=== PATIENT | male | born 1975 | race Two or more races ===

== ENCOUNTER 2023-10-09 13:59 | Outpatient (AMB) | payer OTHER, SELFPAY ==
--- NOTE | 2023-10-09 14:20 | MHC.PC.OV ---
Vital Signs 10/09/23 14:22 Height 5 ft 11 in Weight 234 lb BMI 32.6 BP 136/90 H Blood Pressure Location Lt brachial Position Sitting Intake Visit Reasons: re-establish care , requesting Intake Note: Patient here to re-establish care Print Washer Required: No Accompanied by: Spouse Allergies No Known Allergies Allergy (Verified 10/09/23 14:48) Medication List - Last Reconciled 10/09/23 by Rayna Flores MD No Known Home Meds Tobacco use date assessed: 10/09/23 Dental Screening Dental Screen Date: 10/09/23 Did you have a dental visit in the last 12 months?: No Did you have a dental problem in the last 6 months where you did not have access to dental care?: No Was dental information given to patient?: Patient has dentist HPI HPI Comments History of Present Illness Details This is a 47-year-old male that comes accompanied by complaining of occasional GERD that happens very rarely. He is to have a hiatal hernia. No chest pain or shortness of breath. No fever or cough. Has family history of hypertension. [facility] Surgical History History of circumcision as Family History Mother Hypertension Father No problems noted. Social History Housing: House Alcohol intake: never Patient Tobacco Use Status: Never used Tobacco e-Cigarette/Vaping Use: Never Used Second Hand Smoke Exposure: No service: No Current occupational status: unemployed Cognitive needs: No Hearing needs: No Vision needs: Yes Questionnaire PHQ-9 Over the last 2 weeks, how often have you been bothered by any of the following problems? 1. Little interest or pleasure in doing things: not at all 2. Feeling down, depressed, or hopeless: several days 3. Trouble falling or staying asleep, or sleeping too much: several days 4. Feeling tired or having little energy: several days 5. Poor appetite or overeating: more than half the days 6. Feeling bad about yourself - or that you are a failure or have let yourself or your family down: not at all 7. Trouble concentrating on things, such as reading the newspaper or watching television: not at all 8. Moving or speaking so slowly that other people could have noticed. Or the opposite - being so fidgety or restless that you have been moving around a lot more than usual: several days 9. Thoughts that you would be better off or of hurting yourself in some way: not at all Total score: 6 Depression Screening Interpretation: Positive Depression Screening Follow-up: Existing condition Depression Screening Done: Yes 95372 - PHQ-9 Billing: Yes Source: Developed by Drs. Matt Zaidi, Kitty Rodriguez, Vega Blum and colleagues, with an educational gamaliel from [employer]. Thrive Questionnaire Date Thrive assessed: 10/09/23 I am a: Patient What is your living situation today?: I have a steady place to live Within the past 12 months, did the food you bought not last and you didn't have the money to get more?: Never true Within the past 12 months, did you worry whether your food would run out before you got money to buy more?: Never true Do you have trouble paying for medicines?: No Do you have trouble getting transportation to medical appointments?: No Do you have trouble paying your heating and electricity bill?: No Do you have trouble taking care of your child, family member or friend?: No Do you have trouble with day-to-day activities such as bathing, preparing meals, shopping, managing finances, etc.?: No Are you currently unemployed and looking for a job?: No Are you interested in more education?: No Please select the resources that you would like help with: None Currently or been in a relationship where the following occur: no concerns reported THRIVE Score: 0 AUDIT C Alcohol Use Questionnaire (AUDIT-C) 1. How often do you have a drink containing alcohol?: Never Total Score: 0 Score Reviewed/Action Taken: No JUAN JOSE-7 AMB Questionnaire JUAN JOSE-7 Date JUAN JOSE - 7 assessed: 10/09/23 Feeling nervous, anxious, or on edge: 1 = Several days Not being able to stop or control worryin = Not at all Worrying too much about different things: 0 = Not at all Trouble relaxin = Not at all Being so restless that it is hard to sit still: 0 = Not at all Becoming easily annoyed or irritable: 1 = Several days Feeling afraid as if something awful might happen: 0 = Not at all Total JUAN JOSE-7 score (0-4 normal; 5-9 mild; 10-14 moderate; 15-21 severe): 2 Source: Developed by Drs. Matt Zaidi, Kitty Rodriguez, Vega Blum and colleagues, with an educational gamaliel from [employer]. JUAN JOSE-7 Assessment Billing JUAN JOSE-7 Assessment Tool: JUAN JOSE-7 Assessment 12728 Review of Systems Const All systems reviewed & are unremarkable except as noted in HPI and below Eyes Reports no additional complaints, Denies change in vision and Denies other visual disturbances Card Denies chest pain at rest, Denies chest pain with activity, Denies edema, Denies irregular heart rhythm, Denies claudication, Denies dyspnea, Denies dyspnea on exertion, Denies orthopnea, Denies paroxysmal nocturnal dyspnea and Denies slow heart rate Resp Denies cough, Denies dyspnea and Denies dyspnea on exertion GI Denies abdominal pain, Denies change in bowel habits, Denies excessive flatus, Denies nausea and Denies vomiting Denies urinary hesitancy, Denies urinary incontinence and Denies urinary urgency Physical exam (Primary Care) Vital Signs: Last Vital Signs BP 136/90 H 10/09/23 14:22 BMI result Body Mass Index 32.6 Tobacco/Smoking Status: Tobacco use Status Tobacco use date assessed 10/09/23 10/09/23 14:29 Patient Tobacco Use Status Never used Tobacco 10/09/23 14:29 e-Cigarette/Vaping Use Never Used 10/09/23 14:29 PHQ-9: PHQ-9 Score PHQ-9: Total score 6 10/09/23 15:23 Depression Screening Interpretation: Positive Depression Screening Follow-up: Existing condition Thrive Assessment: Date of Thrive Assessment Date Thrive assessed 10/09/23 10/09/23 14:29 Currently or been in a relationship where the following occur: no concerns reported Eyes General: appearance normal, both eyes and all related structures Eyelids: Yes eyelids normal Conjunctivae: conjunctivae normal Neck Neck: Yes normal visual inspection and Yes supple Resp Effort & Inspection: normal respiratory effort Auscultation: clear to auscultation bilaterally Cardio Jugular venous distension: no JVD Rate: regular rate Rhythm: regular rhythm Heart sounds: S1 normal heart sound present and S2 normal heart sound present Extrem General: Yes full ROM Psych Appearance: grossly normal Assessment and Plan Assessment & Plan (1) GERD (gastroesophageal reflux disease): Code(s): K21.9 - Gastro-esophageal reflux disease without esophagitis Plan: Upper GI serious orde Orders: Orders FL upper GI series Today K21.9 - Gastro-esophageal reflux disease without esophagitis Lipid Panel Today Z82.49 - Family history of ischemic heart disease and other diseases of the circulatory system Comprehensive [place]. Panel Fast Today K21.9 - Gastro-esophageal reflux disease without esophagitis Coding Level of Care Code New Pt Level 3 (22747) Diagnoses GERD (gastroesophageal reflux disease) K21.9 Additional Codes JUAN JOSE-7 Assessment Billing - JUAN JOSE-7 Assessment Tool: JUAN JOSE-7 Assessment 03554 ([id number]) Time Spent (min) 19
[2023-10-09 14:22] VITALS: BP 136/90; BMI 32.6
== END 2023-10-09 14:57 | disposition home or self-care (01) ==
PROVIDERS: PCP Internal Medicine; Visit Provider Internal Medicine
DX: K21.9 Gastro-esophageal reflux disease without esophagitis (principal)
CPT/HCPCS: 99203

== ENCOUNTER 2023-10-18 07:53 | Outpatient (REF) | payer OTHER, SELFPAY ==
[2023-10-18 09:29] LABS: Alanine Aminotransferase 33 U/L (0-40); Albumin Level 4.2 g/dL (3.5-5.0); Alkaline Phosphatase 58 U/L (39-117); Anion Gap 10 (12-20); Aspartate Amino Transferase 26 U/L (5-37); Bilirubin Total 0.9 mg/dL (0.0-1.0); Blood Urea Nitrogen 14 mg/dL (9-16); Calcium 9.1 mg/dL (8.4-10.2); Carbon Dioxide 26 mmol/L (22-29); Chloride 110 mmol/L (96-108); Cholesterol 203 mg/dL (<200); Estimated Glomerular Filt Rate > 60; Glucose Fasting 103 mg/dL (60-99); HDL Cholesterol 36 mg/dL (>40); LDL Cholesterol Calculated 129 mg/dL (<100); Potassium 4.1 mmol/L (3.3-5.1); Sodium 142 mmol/L (135-145); Total Protein 7.2 g/dL (6.5-8.0); Triglycerides 194 mg/dL (<150)
== END 2023-10-18 07:54 | disposition home or self-care (01) ==
LOC: HO.LAB 07:53
PROVIDERS: PCP Internal Medicine; Visit Provider Internal Medicine
DX: K21.9 Gastro-esophageal reflux disease without esophagitis (principal); Z82.49 Family history of ischemic heart disease and other diseases of the circulatory system
CPT/HCPCS: 36415; 80053; 80061

== ENCOUNTER 2023-12-11 08:00 | Outpatient (REF) | payer OTHER, SELFPAY ==
--- NOTE | ~2023-12-11 | FL_ITS ---
EXAMINATION: XR FLUOROSCOPY UPPER GI WITH AIR CLINICAL INFORMATION: Dysphagia. Reflux. COMPARISON: None available. TECHNIQUE: Fluoroscopic air contrast upper GI examination was performed utilizing standard techniques with thin and thick barium and effervescent granules. Numerous spot images were obtained. FINDINGS: Lateral cine images of the oropharynx and hypopharynx demonstrate normal swallow mechanism with normal epiglottic inversion and soft palate elevation. There is trace laryngeal penetration with thick barium. No tracheal penetration, glottic or subglottic aspiration identified. No nasopharyngeal reflux present. Hypopharyngeal structures appear normal without evidence of mass or diverticulum. There was no significant cricopharyngeal achalasia. Dual and single contrast images of the esophagus demonstrate normal caliber, contour, and mucosal pattern. No evidence of stricture, mass, or ulcerations identified. Esophageal peristalsis is mildly disorganized Very small type I hiatal hernia is present. Spontaneous Gastroesophageal reflux is seen up to the thoracic inlet. Dual contrast and single contrast images of the stomach demonstrated a normal contour. The gastric rugal rugal folds have a mildly thickened appearance. No masses or ulcerations are seen. Contrast freely passed into the gastric antrum and duodenal bulb without delay. Single and air-contrast images of the duodenal bulb demonstrate no abnormality. The duodenal sweep has a normal appearance, course, and mucosal fold appearance. No malrotation. The imaged proximal jejunum has a normal fold pattern and caliber. FLUOROSCOPY TIME: 3 minutes 12 seconds Number of Spot Images: 10 Number of Cine: 12 DOSE AREA PRODUCT: 2743 uGy-m2 (microgray-meter squared) FL/FL upper GI w air IMPRESSION: 1. Trace laryngeal penetration with thick barium. 2. Very small type I hiatal hernia. 3. Significant gastroesophageal reflux. 4. Thickened appearance of the gastric rugal folds that likely represents mild gastritis. This procedure was performed by Julius Jackson PA-C, and supervised by Dr. Dillon
== END 2023-12-11 08:01 | disposition home or self-care (01) ==
LOC: HO.XRAY 08:00
PROVIDERS: PCP Internal Medicine; Visit Provider Internal Medicine
DX: K21.9 Gastro-esophageal reflux disease without esophagitis (principal)
CPT/HCPCS: 74246

== ENCOUNTER → 2023-12-11 08:01 | Outpatient (BNV) | payer OTHER, SELFPAY | PROVIDERS: PCP Internal Medicine; Visit Provider Physician Assistant Surgical | DX: R13.10 Dysphagia, unspecified (principal); K21.9 Gastro-esophageal reflux disease without esophagitis | CPT/HCPCS: 74246 ==

== ENCOUNTER 2024-02-06 08:41 | Outpatient (REF) | payer OTHER, SELFPAY | END 2024-02-06 08:42 | disposition home or self-care (01) | LOC: HO.XRAY 08:41 | PROVIDERS: PCP Internal Medicine; Visit Provider Internal Medicine | DX: Z13.89 Encounter for screening for other disorder (principal) ==

== ENCOUNTER 2024-02-24 13:39 | Outpatient (AMB) | payer OTHER, SELFPAY ==
--- NOTE | 2024-02-24 13:54 | A.OFFPC_ITS ---
Vital Signs 02/24/24 13:59 Height 5 ft 11 in Weight 238 lb BMI 33.2 BP 136/92 H Blood Pressure Location Lt brachial Position Sitting Pulse 78 Pulse Source Pulse Oximeter Pulse Oximetry (%) 97 Oxygen Delivery Method Room Air Intake Visit Reasons: pe Intake Note: Patient is here today for a physical. Pt had an episode of low glucose this past Saturday of 58 they symptoms last from 11am-4pm not feeling well. Protective Signal Operations Supervisor Required: No Accompanied by: Self / Same As Patient Allergies No Known Allergies Allergy (Verified 02/24/24 14:02) Medication List - Last Reconciled 02/24/24 by Rayna Flores MD No Known Home Meds Tobacco use date assessed: 10/09/23 Dental Screening Dental Screen Date: 10/09/23 HPI HPI Comments History of Present Illness Details This is a 48-year-old male that comes for his physical exam. Blood pressure borderline normal to elevated and will be recheck in 3 weeks by nurse navigator. Has never had a colonoscopy. Complains of an episode of feeling generalized weakness few weeks ago and measure his blood sugar and it was 58. Had orange juice and symptoms last for about a day. He also complains of right knee pain. [facility] Surgical History History of circumcision as Family History (Updated 02/24/24 @ 14:06 by Rayna Flores MD) Mother Hypertension Father No problems noted. Daughter Brain tumor Social History (Updated 02/24/24 @ 14:07 by Rayna Flores MD) Housing: House Alcohol intake: never Patient Tobacco Use Status: Former Tobacco user Tobacco use type: Cigarette e-Cigarette/Vaping Use: Never Used Second Hand Smoke Exposure: No service: No Current occupational status: unemployed Cognitive needs: No Hearing needs: No Vision needs: Yes Questionnaire Thrive Questionnaire Date Thrive assessed: 10/09/23 JUAN JOSE-7 AMB Questionnaire JUAN JOSE-7 Date JUAN JOSE - 7 assessed: 10/09/23 Source: Developed by Drs. Matt Zaidi, Kitty Rodriguez, Vega Blum and colleagues, with an educational gamaliel from [employer]. Review of Systems Const All systems reviewed & are unremarkable except as noted in HPI and below Card Denies chest pain at rest, Denies chest pain with activity, Denies edema, Denies irregular heart rhythm, Denies claudication, Denies dyspnea, Denies dyspnea on exertion, Denies orthopnea, Denies paroxysmal nocturnal dyspnea and Denies slow heart rate Resp Denies cough, Denies dyspnea and Denies dyspnea on exertion GI Denies abdominal pain, Denies change in bowel habits, Denies excessive flatus, Denies nausea and Denies vomiting Musc Reports arthralgias Physical exam (Primary Care) Vital Signs: Last Vital Signs Pulse 78 02/24/24 13:59 BP 136/92 H 02/24/24 13:59 Pulse Ox 97 02/24/24 13:59 Oxygen Delivery Method Room Air 02/24/24 13:59 BMI result Body Mass Index 33.2 Tobacco/Smoking Status: Tobacco use Status Tobacco use date assessed 10/09/23 02/24/24 13:59 Patient Tobacco Use Status Never used Tobacco 02/24/24 13:59 e-Cigarette/Vaping Use Never Used 02/24/24 13:59 Thrive Assessment: Date of Thrive Assessment Date Thrive assessed 10/09/23 02/24/24 13:59 HENCA Head: Yes normal to inspection, Yes normocephalic and Yes atraumatic Ears: external ears normal Eyes General: appearance normal, both eyes and all related structures Eyelids: Yes eyelids normal Conjunctivae: conjunctivae normal Neck Neck: Yes normal visual inspection and Yes supple Resp Effort & Inspection: normal respiratory effort Auscultation: clear to auscultation bilaterally Cardio Jugular venous distension: no JVD Rate: regular rate Rhythm: regular rhythm Heart sounds: S1 normal heart sound present and S2 normal heart sound present GI Inspection: Yes normal to inspection Palpation (GI): Soft to palpation and nontender Auscultation: normal bowel sounds Skin General skin exam: no rashes or lesions noted Neuro General: no focal motor deficits Extrem General: Yes full ROM Psych Appearance: grossly normal Assessment and Plan Assessment & Plan (1) Physical exam: Code(s): Z00.00 - Encounter for general adult medical examination without abnormal findings Plan: Repeat in a year. (2) Right knee pain: Code(s): M25.561 - Pain in right knee Qualifiers: Chronicity: acute Qualified Code(s): M25.561 - Pain in right knee Plan: X-ray ordered. (3) Hypoglycemia: Code(s): E16.2 - Hypoglycemia, unspecified Plan: Labs ordered. Orders: Orders Lipid Panel Today Z00.00 - Encounter for general adult medical examination without abnormal findings XR knee RT 2V Today M25.561 - Pain in right knee Comprehensive [place]. Panel Fast Today Z00.00 - Encounter for general adult medical examination without abnormal findings Glucose 2 Hour PP Today E16.2 - Hypoglycemia, unspecified Referrals Open Access Screening Colonoscopy Referral Z12.11 - Encounter for screening for malignant neoplasm of colon Coding Level of Care Code Est Pt Level 3 (50780) Est Pt Prev Care 40-64y(70874) Diagnoses Physical exam Z00.00 Acute pain of right knee M25.561 Chronicity: acute Hypoglycemia E16.2 Time Spent (min) 32
[2024-02-24 13:59] VITALS: BP 136/92; PULSE 78; O2SAT 97; BMI 33.2
== END 2024-02-24 14:24 | disposition home or self-care (01) ==
PROVIDERS: PCP Internal Medicine; Visit Provider Internal Medicine
DX: Z00.00 Encounter for general adult medical examination without abnormal findings (principal); M25.561 Pain in right knee; E16.2 Hypoglycemia, unspecified
CPT/HCPCS: 99213; 99396

== ENCOUNTER 2024-03-26 08:58 | Outpatient (REF) | payer OTHER, SELFPAY ==
--- NOTE | ~2024-03-26 | XR_ITS ---
EXAMINATION: XR KNEE, RIGHT CLINICAL INFORMATION: Pain COMPARISON: None TECHNIQUE: AP and lateral views of the right knee. FINDINGS: Bony mineralization is normal. There is mild to moderate asymmetric narrowing of the medial joint space compartment, and the lateral joint space compartment is well-maintained. There is moderately severe narrowing of the patellofemoral compartment. There is tricompartment peripheral osteophyte formation. There is a mild varus configuration. No fracture, dislocation or joint effusion is seen. There is no foreign body. XR/XR knee RT 2V IMPRESSION: 1. There is tricompartmental osteoarthritic change of the right knee, most pronounced of the patellofemoral joint space compartment, where degenerative change is moderately severe. 2. No fracture, dislocation or joint effusion is seen. 3. There is a mild varus configuration. Electronically signed by: Jack Aguilar MD 04/22/2024 03:22 PM EDT
[2024-03-26 10:29] LABS: Alanine Aminotransferase 36 U/L (0-40); Albumin Level 4.2 g/dL (3.5-5.0); Alkaline Phosphatase 54 U/L (39-117); Anion Gap 10 (12-20); Aspartate Amino Transferase 30 U/L (5-37); Bilirubin Total 1.2 mg/dL (0.0-1.0); Blood Urea Nitrogen 17 mg/dL (9-16); Calcium 9.1 mg/dL (8.4-10.2); Carbon Dioxide 25 mmol/L (22-29); Chloride 110 mmol/L (96-108); Cholesterol 171 mg/dL (<200); Estimated Glomerular Filt Rate > 60; Glucose Fasting 103 mg/dL (60-99); HDL Cholesterol 33 mg/dL (>40); LDL Cholesterol Calculated 108 mg/dL (<100); Sodium 141 mmol/L (135-145); Total Protein 7.3 g/dL (6.5-8.0); Triglycerides 153 mg/dL (<150)
[2024-03-26 13:12] LABS: Glucose 2 Hour PP 52 mg/dL (60-115)
== END 2024-03-26 08:59 | disposition home or self-care (01) ==
LOC: HO.XRAY 08:58
PROVIDERS: PCP Internal Medicine; Visit Provider Internal Medicine
DX: Z00.00 Encounter for general adult medical examination without abnormal findings (principal); M25.561 Pain in right knee; E16.2 Hypoglycemia, unspecified; M17.11 Unilateral primary osteoarthritis, right knee
CPT/HCPCS: 36415; 73560; 80053; 80061; 82947

== ENCOUNTER 2024-05-20 07:42 | Outpatient (AMB) | payer OTHER, SELFPAY ==
--- NOTE | 2024-05-20 07:52 | MHC.OFFVIS ---
Intake Visit Reasons: Right knee pain and giving way Intake Note: Shakir is a 48 year old male who presents with complaints of progressively worsening right knee pain and giving way. The patient states that his symptoms have gotten worse over the last 3 years in spite of continued non operative treatments. He has failed the last 6 weeks of conservative treatment which has consisted of a home exercise program, topical creams, Tylenol and anti-inflammatory medicines. The patient states that he injured his knee 3 years ago while playing with his child. He twisted his knee and had acute onset of pain. Most of the pain is along the medial aspect of his knee. He states that his left knee will give out several times per day. Assistant City Attorney Required: Yes Assistant City Attorney Language: Senior Information Security Engineer Name: [place]([id number]) Allergies No Known Allergies Allergy (Verified 05/20/24 07:57) Medication List - Last Reconciled 05/20/24 by Yuval Biswas MD No Known Home Meds [facility] Surgical History History of circumcision as Family History (Updated 02/24/24 @ 14:06 by Rayna Flores MD) Mother Hypertension Father No problems noted. Daughter Brain tumor Social History (Updated 02/24/24 @ 14:07 by Rayna Flores MD) Housing: House Alcohol intake: never Patient Tobacco Use Status: Former Tobacco user Tobacco use type: Cigarette e-Cigarette/Vaping Use: Never Used Second Hand Smoke Exposure: No service: No Current occupational status: unemployed Cognitive needs: No Hearing needs: No Vision needs: Yes Physical Exam Const Other: Well-nourished well-developed very friendly male awake alert and oriented x3 in no acute distress Extrem Other: Bilateral lower extremity examination shows good capillary refill, no skin lesions noted, normal sensation light touch Right knee examination shows a minimal effusion, minimal crepitus with range of motion, tenderness along his medial joint line, positive Loli's test, no instability Results Reviewed Results Reviewed: Standing full weight-bearing x-rays of the patient's right knee show mild diffuse joint space narrowing, no acute bony abnormalities Assessment & Plan Assessment & Plan (1) Tear of medial meniscus of right knee: Code(s): S83.241A - Other tear of medial meniscus, current injury, right knee, initial encounter Category: Medical Plan Mr. Armstrong presents with progressively worsening right knee pain and mechanical symptoms most likely due to a tear of his medial meniscus. I will send the patient for MRI of his right knee for further evaluation. I will see him back once the MRI is completed to discuss the findings and treatment options. Feel free to call me at any time should questions regarding his orthopedic management arise. Thank you very much for asking me to see this very friendly gentleman. I spent 21 minutes in reviewing the patient's records and imaging studies, seeing the patient and documenting in the medical record. Orders: Orders MR knee RT wo con Today S83.241A - Other tear of medial meniscus, current injury, right knee, initial encounter Coding Level of Care Code New Pt Level 3 (87462) Complex EM visit Add On G2211 Diagnoses Tear of medial meniscus of right knee S83.241A
== END 2024-05-20 08:15 | disposition home or self-care (01) ==
PROVIDERS: PCP Internal Medicine; Visit Provider Orthopaedic Surgery
DX: S83.241A Other tear of medial meniscus, current injury, right knee, initial encounter (principal)
CPT/HCPCS: 99203; G2211

== ENCOUNTER → 2024-05-20 07:42 | Outpatient (BNVA) | payer OTHER, SELFPAY | PROVIDERS: PCP Internal Medicine; Visit Provider Orthopaedic Surgery | DX: S83.241A Other tear of medial meniscus, current injury, right knee, initial encounter (principal); X58.XXXA Exposure to other specified factors, initial encounter; Y93.9 Activity, unspecified; Y92.9 Unspecified place or not applicable; Y99.9 Unspecified external cause status | CPT/HCPCS: 99202 ==

== ENCOUNTER 2024-06-18 07:16 | Outpatient (REF) | payer OTHER, SELFPAY ==
--- NOTE | ~2024-06-18 | MR_ITS ---
EXAMINATION: MR KNEE WITHOUT CONTRAST, RIGHT CLINICAL INFORMATION: Right knee pain. COMPARISON: None available. TECHNIQUE: MRI of the knee without contrast was performed using routine sequences on a high-field scanner. FINDINGS: MENISCI: Medial Meniscus: Irregular inner margin tearing of the posterior horn. Degenerative signal at the meniscal body with probable undersurface fraying. The meniscal body is extruded with intrasubstance degenerative signal. There is a vertical longitudinal tear at the root of the anterior horn with a 1.8 cm parameniscal cyst along the peripheral fibers. Lateral Meniscus: Intact LIGAMENTS: Cruciate: Intact Collateral: Intact EXTENSOR MECHANISM: Intact ARTICULAR CARTILAGE/BONE: Patellofemoral Compartment: Mild cartilage thinning and surface irregularity with shallow oblique fissuring of the medial patellar facet and median ridge. Cartilage thinning and surface irregularity throughout the central trochlea. Small marginal osteophytes. Medial Compartment: Cartilage thinning throughout the weightbearing aspect with prominent marginal osteophytes. There is longitudinal partial thickness cartilage loss of the posterior non-weightbearing femoral condyle. Degenerative cyst formation of the tibia posteriorly, subjacent to the meniscal root. Lateral Compartment: Prominent marginal osteophytes without a focal cartilage defect. JOINT FLUID AND BURSAE: Moderate joint effusion with mild synovitis. There is a small chondral body posterolaterally and a complex cyst/ganglion posteriorly, superficial to the distal PCL. MR/MR knee RT wo con IMPRESSION: 1. Irregular inner margin tearing of the posterior horn of the medial meniscus with extrusion of the meniscal body. There is a vertical longitudinal tear at the root of the anterior horn with a 1.8 cm parameniscal cyst. 2. Moderate medial and mild patellofemoral/lateral compartment osteoarthritis. Moderate joint effusion with mild synovitis. Electronically signed by: Allen Urbano MD 07/04/2024 12:44 PM [facility]
== END 2024-06-18 07:17 | disposition home or self-care (01) ==
LOC: HO.MRI 07:16
PROVIDERS: PCP Internal Medicine; Visit Provider Orthopaedic Surgery
DX: S83.241A Other tear of medial meniscus, current injury, right knee, initial encounter (principal)
CPT/HCPCS: 73721

== ENCOUNTER 2024-08-04 08:53 | Outpatient (AMB) | payer OTHER, SELFPAY ==
--- NOTE | 2024-08-04 08:53 | MHC.OFFVIS ---
Intake Visit Reasons: Right knee pain Intake Note: Shakir is a 48 year old male who presents with complaints of progressively worsening right knee pain and giving way. The patient states that his symptoms have gotten worse over the last 3 years in spite of continued non operative treatments. He has failed the last 6 weeks of conservative treatment which has consisted of a home exercise program, topical creams, Tylenol and anti-inflammatory medicines. The patient states that he injured his knee 3 years ago while playing with his child. He twisted his knee and had acute onset of pain. Most of the pain is along the medial aspect of his knee. He states that his left knee will give out several times per day. Communications Engineering Technician Required: Yes Communications Engineering Technician Language: Firefighting Equipment Specialist Services: Communications Engineering Technician Present Communications Engineering Technician Name: AmyLEONIDAS/CINDY Allergies No Known Allergies Allergy (Verified 08/04/24 08:55) Medication List - Last Reconciled 08/04/24 by Yuval Biswas MD No Known Home Meds [facility] Surgical History History of circumcision as Family History Mother Hypertension Father No problems noted. Daughter Brain tumor Social History Housing: House Alcohol intake: never Patient Tobacco Use Status: Former Tobacco user Tobacco use type: Cigarette e-Cigarette/Vaping Use: Never Used Second Hand Smoke Exposure: No service: No Current occupational status: unemployed Cognitive needs: No Hearing needs: No Vision needs: Yes Physical Exam Const Other: Well-nourished well-developed very friendly male awake alert and oriented x3 in no acute distress Extrem Other: Bilateral lower extremity examination shows good capillary refill, no skin lesions noted, normal sensation light touch Right knee examination shows a minimal effusion, minimal crepitus with range of motion, tenderness along his medial joint line, positive Loli's test, no instability Results Reviewed Results Reviewed: Standing full weight-bearing x-rays of the patient's right knee show mild diffuse joint space narrowing, no acute bony abnormalities MRI of the patient's right knee shows mild diffuse degenerative changes as well as a tear of the medial meniscus, no acute bony abnormalities Assessment & Plan Assessment & Plan (1) Right knee pain: Code(s): M25.561 - Pain in right knee Category: Medical Qualifiers: Chronicity: acute Qualified Code(s): M25.561 - Pain in right knee (2) Tear of medial meniscus of right knee: Code(s): S83.241A - Other tear of medial meniscus, current injury, right knee, initial encounter Category: Medical Plan Mr. Armstrong presents with right knee pain and mechanical symptoms due to a medial meniscus tear. I had a lengthy discussion with the patient regarding the treatment options. The patient is considering undergoing right knee arthroscopic surgery early next year. He will contact my office to pick a surgery date if he chooses to do so. Surgery will most likely involve right knee arthroscopic partial medial meniscectomy. He does understand that he may not get 100% relief of his symptoms depending on the severity of his degenerative changes. He will continue with his activity modifications in the meantime. Feel free to call me at any time should questions regarding his orthopedic management arise. I spent 21 minutes in reviewing the patient's records and imaging studies, seeing the patient and documenting in the medical record. Coding Level of Care Code Est Pt Level 3 (56154) Complex EM visit Add On G2211 Diagnoses Acute pain of right knee M25.561 Chronicity: acute Tear of medial meniscus of right knee S83.241A
== END 2024-08-04 09:07 | disposition home or self-care (01) ==
LOC: HO.HOS 08:53
PROVIDERS: PCP Internal Medicine; Visit Provider Orthopaedic Surgery
DX: M25.561 Pain in right knee (principal); S83.241A Other tear of medial meniscus, current injury, right knee, initial encounter
CPT/HCPCS: 99213; G2211

== ENCOUNTER → 2024-08-04 08:53 | Outpatient (BNVA) | payer OTHER, SELFPAY | PROVIDERS: PCP Internal Medicine; Visit Provider Orthopaedic Surgery | DX: M25.561 Pain in right knee (principal); S83.241A Other tear of medial meniscus, current injury, right knee, initial encounter | CPT/HCPCS: 99212 ==

== ENCOUNTER 2024-08-26 10:52 | Outpatient (AMB) | payer OTHER, SELFPAY ==
--- NOTE | 2024-08-26 11:08 | MHC.PC.OV ---
Vital Signs 08/26/24 11:09 Height 5 ft 11 in Weight 243 lb BMI 33.9 BP 130/82 Blood Pressure Location Lt brachial Position Sitting Intake Visit Reasons: bp Intake Note: Patient here for a follow up BP Leathersmith Required: Yes Leathersmith Language: Fluorescent Lamp Replacer Name: Rayna Flores MD Information Interpreted: non-clinical & clinical Accompanied by: Self / Same As Patient Allergies No Known Allergies Allergy (Verified 08/26/24 11:12) Tobacco use date assessed: 08/26/24 Dental Screening Dental Screen Date: 08/26/24 Did you have a dental visit in the last 12 months?: No Did you have a dental problem in the last 6 months where you did not have access to dental care?: No Was dental information given to patient?: Patient has dentist HPI HPI Comments History of Present Illness Details The patient is a 48-year-old male presenting with concerns about episodes of hypoglycemia. These episodes include symptoms such as feeling nearly unconscious. There is a noted history of low blood sugar, which appears to be influenced by dietary habits, especially the consumption of carbohydrates and sugars. The patient also has a history of hyperlipidemia, which had previously shown improvement through dietary modifications. The patient reports no recent fluctuations in pressure levels, which remain excellent. The patient is aware of the need for weight management, with a recorded Body Mass Index (BMI) of 33, indicating the need to decrease weight. There have been no reported recent episodes that were incapacitating, and the patient acknowledges the link between high carbohydrate intake and hypoglycemic episodes. [facility] Surgical History History of circumcision as Family History Mother Hypertension Father No problems noted. Daughter Brain tumor Social History Housing: House Alcohol intake: never Patient Tobacco Use Status: Former Tobacco user Tobacco use type: Cigarette e-Cigarette/Vaping Use: Never Used Second Hand Smoke Exposure: No service: No Current occupational status: unemployed Cognitive needs: No Hearing needs: No Vision needs: Yes Questionnaire PHQ-9 Over the last 2 weeks, how often have you been bothered by any of the following problems? 1. Little interest or pleasure in doing things: not at all 2. Feeling down, depressed, or hopeless: not at all 3. Trouble falling or staying asleep, or sleeping too much: not at all 4. Feeling tired or having little energy: not at all 5. Poor appetite or overeating: not at all 6. Feeling bad about yourself - or that you are a failure or have let yourself or your family down: not at all 7. Trouble concentrating on things, such as reading the newspaper or watching television: not at all 8. Moving or speaking so slowly that other people could have noticed. Or the opposite - being so fidgety or restless that you have been moving around a lot more than usual: not at all 9. Thoughts that you would be better off or of hurting yourself in some way: not at all Total score: 0 Depression Screening Interpretation: Negative Depression Screening Done: Yes 06819 - PHQ-9 Billing: Yes Source: Developed by Drs. Matt Zaidi, Kitty Rodriguez, Vega Blum and colleagues, with an educational gamaliel from [employer]. Thrive Questionnaire Date Thrive assessed: 08/26/24 I am a: Patient What is your living situation today?: I have a steady place to live Within the past 12 months, did the food you bought not last and you didn't have the money to get more?: Never true Within the past 12 months, did you worry whether your food would run out before you got money to buy more?: Never true Do you have trouble paying for medicines?: No Do you have trouble getting transportation to medical appointments?: No Do you have trouble paying your heating and electricity bill?: No Do you have trouble taking care of your child, family member or friend?: No Do you have trouble with day-to-day activities such as bathing, preparing meals, shopping, managing finances, etc.?: No Are you currently unemployed and looking for a job?: No Are you interested in more education?: No Please select the resources that you would like help with: None Currently or been in a relationship where the following occur: No concerns reported THRIVE Score: 0 AUDIT C Alcohol Use Questionnaire (AUDIT-C) 1. How often do you have a drink containing alcohol?: Never Total Score: 0 Score Reviewed/Action Taken: No JUAN JOSE-7 AMB Questionnaire JUAN JOSE-7 Date JUAN JOSE - 7 assessed: 08/26/24 Feeling nervous, anxious, or on edge: 0 = Not at all Not being able to stop or control worryin = Not at all Worrying too much about different things: 0 = Not at all Trouble relaxin = Not at all Being so restless that it is hard to sit still: 0 = Not at all Becoming easily annoyed or irritable: 0 = Not at all Feeling afraid as if something awful might happen: 0 = Not at all Total JUAN JOSE-7 score (0-4 normal; 5-9 mild; 10-14 moderate; 15-21 severe): 0 Source: Developed by Drs. Matt Zaidi, Kitty Rodriguez, Vega Blum and colleagues, with an educational gamaliel from [employer]. JUAN JOSE-7 Assessment Billing JUAN JOSE-7 Assessment Tool: JUAN JOSE-7 Assessment 71447 Review of Systems Const All systems reviewed & are unremarkable except as noted in HPI and below Card Denies chest pain at rest, Denies chest pain with activity, Denies edema, Denies irregular heart rhythm, Denies claudication, Denies dyspnea, Denies dyspnea on exertion, Denies orthopnea, Denies paroxysmal nocturnal dyspnea and Denies slow heart rate Resp Denies cough, Denies dyspnea and Denies dyspnea on exertion Physical exam (Primary Care) Vital Signs: Last Vital Signs BP 130/82 08/26/24 11:09 BMI result Body Mass Index 33.9 BMI Assessment/Plan discussion: High BMI High, discussed plan: lifestyle, weight reduction, dietary and physical activity Tobacco/Smoking Status: Tobacco use Status Tobacco use date assessed 08/26/24 08/26/24 11:14 Patient Tobacco Use Status Former Tobacco user 08/26/24 11:14 Tobacco use type Cigarette 08/26/24 11:14 e-Cigarette/Vaping Use Never Used 08/26/24 11:14 PHQ-9: PHQ-9 Score PHQ-9: Total score 0 08/26/24 11:29 Depression Screening Interpretation: Negative Thrive Assessment: Date of Thrive Assessment Date Thrive assessed 08/26/24 08/26/24 11:14 Currently or been in a relationship where the following occur: No concerns reported Resp Effort & Inspection: normal respiratory effort Auscultation: clear to auscultation bilaterally Cardio Jugular venous distension: no JVD Rate: regular rate Rhythm: regular rhythm Heart sounds: S1 normal heart sound present and S2 normal heart sound present Extrem General: Yes full ROM Office Procedures Flu Questionnaire Does the patient have a severe egg allergy?: No Immunizations Fluarix Triv [id number] (PF) 45 mcg (15 mcg x 3)/0.5 mL IM syringe Performing Provider: Rayna Flores MD [facility] [place] [facility] Documented (not given) by: LEONIDAS Sánchez on 08/26/24 11:14 Reason Not Given: Patient Refused Coding Level of Care Code Est Pt Level 4 (68746) Complex EM visit Add On G2211 Diagnoses Hypoglycemia E16.2 Obesity (BMI 30.0-34.9) E66.811 Additional Codes JUAN JOSE-7 Assessment Billing - JUAN JOSE-7 Assessment Tool: JUAN JOSE-7 Assessment 76452 ([id number]) PHQ-9 - 28468 - PHQ-9 Billing: Yes ([id number]) Time Spent (min) 23 Assessment & Plan Assessment & Plan (1) Hypoglycemia: Code(s): E16.2 - Hypoglycemia, unspecified Category: Medical (2) Obesity (BMI 30.0-34.9): Code(s): E66.811 - Obesity, class 1 Category: Medical Plan - Arrange referral to security public safety officer for evaluation of hypoglycemia. - Schedule laboratory tests for fasting glucose, lipids, liver, and kidney function. - Advised continuing dietary measures to maintain cholesterol within a normal range. - Patient advised to engage in lifestyle modifications for weight reduction. Patient was informed and verbally consented to the use of an ambient scribe for clinic note documentation during this visit. During the visit, I discussed with the patient the likely cause of his hypoglycemic episodes, attributing them largely to the dietary intake of high carbohydrates and sugars. We reviewed the management options, including dietary adjustments to increase protein intake and decrease carbohydrates and sugars. I explained the importance of monitoring blood sugar levels and avoiding large carbohydrate meals to prevent triggering hypoglycemic events. The patient consented to seeing an security public safety officer for further evaluation and agreed to undergo recommended laboratory tests to monitor fasting glucose and lipid levels. The importance of weight loss was stressed, and strategies for implementing these changes were reviewed. Follow-up plans were discussed, with a suggested revisit in February to evaluate the effectiveness of these interventions and to assess for additional medical or dietary adjustments. Orders: Orders Comprehensive [place]. Panel Fast Today E16.2 - Hypoglycemia, unspecified Lipid Panel Today E78.5 - Hyperlipidemia, unspecified Influenza 3230-4011 Immunization Today Z23 - Encounter for immunization Referrals Endocrinology Referral E16.2 - Hypoglycemia, unspecified Patient Instructions: - Follow a diet that prioritizes proteins and minimizes carbohydrates and sugars. - Monitor blood sugar levels regularly to track any changes or persistent low episodes. - Anticipate upcoming laboratory tests and security public safety officer appointment. - Aim to reduce weight as part of managing overall health, focusing on dietary changes alongside any suggested physical activity. - Return for follow-up evaluation in February as planned.
[2024-08-26 11:09] VITALS: BP 130/82; BMI 33.9
== END 2024-08-26 11:34 | disposition home or self-care (01) ==
PROVIDERS: PCP Internal Medicine; Visit Provider Internal Medicine
DX: E16.2 Hypoglycemia, unspecified (principal); E66.811 Obesity, class 1; Z68.33 Body mass index [BMI] 33.0-33.9, adult

== ENCOUNTER 2024-08-26 10:52 | Outpatient (REF) | payer OTHER, SELFPAY ==
[2024-08-26 12:44] LABS: Albumin Level 4.4 g/dL (3.5-5.0); Alkaline Phosphatase 57 U/L (39-117); Anion Gap 8 (12-20); Aspartate Amino Transferase 30 U/L (5-37); Bilirubin Total 1.1 mg/dL (0.0-1.0); Blood Urea Nitrogen 17 mg/dL (9-16); Calcium 9.6 mg/dL (8.4-10.2); Carbon Dioxide 28 mmol/L (22-29); Chloride 109 mmol/L (96-108); Cholesterol 208 mg/dL (<200); Estimated Glomerular Filt Rate > 60; Glucose Fasting 87 mg/dL (60-99); HDL Cholesterol 34 mg/dL (>40); LDL Cholesterol Calculated 125 mg/dL (<100); Potassium 4.2 mmol/L (3.3-5.1); Sodium 141 mmol/L (135-145); Total Protein 7.9 g/dL (6.5-8.0); Triglycerides 246 mg/dL (<150)
[2024-08-26 12:56] LABS: Alanine Aminotransferase 44 U/L (0-40)
== END 2024-08-26 10:53 | disposition home or self-care (01) ==
LOC: HO.LAB 10:52
PROVIDERS: PCP Internal Medicine; Visit Provider Internal Medicine
DX: E16.2 Hypoglycemia, unspecified (principal); E78.5 Hyperlipidemia, unspecified; E66.811 Obesity, class 1; Z68.33 Body mass index [BMI] 33.0-33.9, adult; Z28.21 Immunization not carried out because of patient refusal
CPT/HCPCS: 36415; 80053; 80061; 96127; 99212

== ENCOUNTER 2024-09-07 13:24 | Outpatient (AMB) | payer OTHER, SELFPAY ==
[2024-09-07 13:29] VITALS: BP 130/88; PULSE 86; BMI 34.1
--- NOTE | 2024-09-07 13:29 | A.OFFVIS_ITS ---
Vital Signs 09/07/24 13:29 Height 5 ft 11 in Weight 244 lb 7.882 oz BMI 34.1 BP 130/88 Blood Pressure Location Lt brachial Position Sitting Pulse 86 Pulse Source Pulse Oximeter Intake Visit Reasons: Hypoglycemia, Intake Note: New patient internally referred by PCP for Hypoglycemia. Auto Accessories Installer Required: Yes Auto Accessories Installer Language: Assistant Chief Engineer Services: Auto Accessories Installer Present Auto Accessories Installer Name: Michaela LAUREN, RONALDO Information Interpreted: non-clinical & clinical Accompanied by: Self / Same As Patient Allergies No Known Allergies Allergy (Verified 09/07/24 13:30) Medication List - Last Reconciled 09/07/24 by Matt Minor MD No Known Home Meds HPI Comments Details: This is a 48-year-old male sent to endocrinology for evaluation of hypoglycemia. Episodes started 1 yr ago. Patient states episodes happen once or twice a mo . No sx when bloodwork was 52 in lab . The episodes are provoked by ?? . The episodes are alleviated by OJ. . The patient experiences weakness, nausea and dizziness during these episodes. The patient hashad an episode of syncope 1 yr ago but none subsequent No seizure. The patient has not had bariatric surgery. The patient has not taken several courses of steroids recently. There is no relationship to food Grandmother has diabetes. [facility] Surgical History History of circumcision as Family History Mother Hypertension Father No problems noted. Daughter Brain tumor Social History Housing: House Alcohol intake: never Patient Tobacco Use Status: Former Tobacco user Tobacco use type: Cigarette e-Cigarette/Vaping Use: Never Used Second Hand Smoke Exposure: No service: No Current occupational status: unemployed Cognitive needs: No Hearing needs: No Vision needs: Yes Physical Exam Vital Signs: Last Vital Signs Pulse 86 09/07/24 13:29 BP 130/88 09/07/24 13:29 BMI result Body Mass Index 34.1 Const Other: Thyroid gland is normal size weighs about 15 g. There are no thyroid nodules p alpated. Skin exam reveals the absence of lesions or hyperpigmentation Assessment & Plan Assessment & Plan (1) Hypoglycemia: Code(s): E16.2 - Hypoglycemia, unspecified Category: Medical Plan: Is a 48-year-old male refer to endocrinology for management of hypoglycemia. Although there was a documented value of low blood sugar, is not clear with the patient's satisfies Whipple's triad that is, symptoms of hypoglycemia correlated with documented hypoglycemia and relief of symptoms of hypoglycemia with correction of the hypoglycemia. Not clear at this point of patient's satisfies Whipple's triad Will have patient report to laboratory assisted when experiences symptoms to see if symptoms correlate with hypoglycemia on serum glucose. If they do, patient may need to either be admitted for a formal 48-72 hour inpatient fast provoke hypoglycemia or referred to a tertiary care center like [facility] Orders: Orders Glucose Random Today E16.2 - Hypoglycemia, unspecified Referrals Nutrition/Dietitian Referral E16.2 - Hypoglycemia, unspecified Coding Level of Care Code New Pt Level 4 (10122) Diagnoses Hypoglycemia E16.2
== END 2024-09-07 14:04 | disposition home or self-care (01) ==
PROVIDERS: PCP Internal Medicine; Visit Provider Internal Medicine Endocrinology, Diabetes & Metabolism
DX: E16.2 Hypoglycemia, unspecified (principal)
CPT/HCPCS: 99204

== ENCOUNTER → 2024-09-07 13:24 | Outpatient (BNVA) | payer OTHER, SELFPAY | PROVIDERS: PCP Internal Medicine; Visit Provider Internal Medicine Endocrinology, Diabetes & Metabolism | DX: E16.2 Hypoglycemia, unspecified (principal) | CPT/HCPCS: 99202 ==

== ENCOUNTER 2024-09-24 10:28 | Outpatient (AMB) | payer OTHER, SELFPAY ==
--- NOTE | 2024-09-24 10:35 | MHC.AMNUTRGE ---
VS Expanded 09/24/24 10:38 09/24/24 11:03 Height 5 ft 11 in 5 ft 11 in Weight 242 lb 8.136 oz 242 lb BMI 33.8 33.7 Intake Visit Reasons: Hypoglycemia, unspecified Allergies No Known Allergies Allergy (Verified 09/07/24 13:30) Nutrition Presentation Details: Pt presents for MNT for hypoglycemia Typical meal intake B: fritters,soda or cereal/milk L/D rice/beans/chicken/soda or juice snack: fruit/yogurt/juice/soda night: juice/milk food frequency fruits: 0-1/d dairy: 2-3/d starches > 25/d vex/wk fish:not including, prot: 16oz/d Physical activity: currently sedentary etoh/smoking- denies BS Monitoring Most Recent Diabetes Results: Cholesterol 208 mg/dL (<200) H 08/26/24 HDL Cholesterol 34 mg/dL (>40) L 08/26/24 Triglycerides 246 mg/dL (<150) H 08/26/24 Creatinine 1.01 mg/dL (0.5-1.4) 08/26/24 Blood Urea Nitrogen 17 mg/dL (9-16) H 08/26/24 Sodium 141 mmol/L (135-145) 08/26/24 Potassium 4.2 mmol/L (3.3-5.1) 08/26/24 Chloride 109 mmol/L (96-108) H 08/26/24 Carbon Dioxide 28 mmol/L (22-29) 08/26/24 Calcium 9.6 mg/dL (8.4-10.2) 08/26/24 AST 30 U/L (5-37) 08/26/24 ALT 44 U/L (0-40) H 08/26/24 Total Protein 7.9 g/dL (6.5-8.0) 08/26/24 Albumin 4.4 g/dL (3.5-5.0) 08/26/24 CHC-Yhztlkf-Am.Jeor Equation Height: 5 ft 11 in Weight: 242 lb Resting Metabolic Rate: 1992.56 Calculated Activity Level: Mild Activity Calories Needed to Maintain Weight: 2739.77 Diagnosis Nutrition problem #1: food nutri know defi As related to (etiology) #1: diagnosis (hypoglycemia) As evidenced by (sign/symptom) #1: food recall [facility] Surgical History History of circumcision as Family History Mother Hypertension Father No problems noted. Daughter Brain tumor Social History Housing: House Alcohol intake: never Patient Tobacco Use Status: Former Tobacco user Tobacco use type: Cigarette e-Cigarette/Vaping Use: Never Used Second Hand Smoke Exposure: No service: No Current occupational status: unemployed Cognitive needs: No Hearing needs: No Vision needs: Yes Assessment & Plan Assessment & Plan (1) Hypoglycemia: Code(s): E16.2 - Hypoglycemia, unspecified Category: Medical Plan: Wt: 110 Kg ( 10/06 ) Est kcal needs as per MSJ: 2700 (40% carb, 30% protein/fat) Est fluid needs as per 30 ml/d: 3300 Est prot per day as per 1 g/kg bw: 110 Recommend fiber intake : 8-10 g per day and gradually increase to 25-28 g per day for women and 35-38 g for men or as tolerated Recommend sodium intake per day : less than 2000 mg Educated patient on: ( R = reviewed V = verbalizes understanding N/R = needs review N/A = not applicable Food sources of carbohydrate, adequate serving sizes and its role in various health conditions: R Differences between complex carbohydrates a simple carbohydrates, role of fiber in diet: R Lean protein sources of foods: R Differences between types of fats and role in diet (mono on saturated fat fatty acids, saturated fatty acids, trans fats): R V N/R Food sources of sodium in salt and healthy modifications for heart health in kidney health: R V R/V Vitamins and minerals: R V N/R Healthy plate method concept: R V N/R Physical activity: Benefits a precaution: R Hypoglycemia protocol (rule of 15) and prevention of hypoglycemia : R Patient Instructions: Reduce on simple sugars (sodas/juice drinks, pastries , candies and similar)- Reduzca en las azucares simples (sodas, bebidas azucaradas, dulces, y similares) Choose complex carbohydrates - Escoja carbohidratos complejos y reduzca ramos total de carb por comida a 100 g o menos e incluya proteina de 5-6 oz,. SEe list of meal ideas and snacks - Victorino lista de ideas de comidas y meriendas Coding Level of Care Code Nutr Indiv Intake (37639) Diagnoses Hypoglycemia E16.2 Time Spent (min) 30
[2024-09-24 10:38] VITALS: BMI 33.8
[2024-09-24 11:03] VITALS: BMI 33.7
== END 2024-09-24 11:16 | disposition home or self-care (01) ==
PROVIDERS: PCP Internal Medicine; Visit Provider Dietitian, Registered
DX: E16.2 Hypoglycemia, unspecified (principal)

== ENCOUNTER → 2024-09-24 10:28 | Outpatient (BNVA) | payer OTHER, SELFPAY | PROVIDERS: PCP Internal Medicine; Visit Provider Dietitian, Registered | DX: E16.2 Hypoglycemia, unspecified (principal) | CPT/HCPCS: 97802 ==

== ENCOUNTER 2024-10-20 09:46 | Outpatient (AMB) | payer OTHER, SELFPAY ==
--- NOTE | 2024-10-20 09:57 | A.OFFVIS_ITS ---
Vital Signs 10/20/24 09:59 Height 5 ft 11 in Weight 247 lb 2.211 oz BMI 34.5 BP 138/94 H Blood Pressure Location Rt brachial Position Sitting Pulse 79 Pulse Source Pulse Oximeter Pulse Oximetry (%) 96 Oxygen Delivery Method Room Air Intake Visit Reasons: Hypoglycemia Intake Note: Patient present today for Hypoglycemia follow up. Airplane Pilot Required: Yes Airplane Pilot Language: Journeyman Carpenter Services: Airplane Pilot Present Airplane Pilot Name: Noris Information Interpreted: non-clinical & clinical Accompanied by: Self / Same As Patient Allergies No Known Allergies Allergy (Verified 10/20/24 09:59) Medication List - Last Reconciled 10/20/24 by Matt Minor MD No Known Home Meds HPI Comments Details: This is a 48-year-old male sent to endocrinology for evaluation of hypoglycemia. Episodes started 1 yr ago. Patient states episodes happen once or twice a mo . No sx when bloodwork was 52 in lab . The episodes are provoked by ?? . The episodes are alleviated by OJ. . The patient experiences weakness, nausea and dizziness during these episodes. The patient hashad an episode of syncope 1 yr ago but none subsequent No seizure. The patient has not had bariatric surgery. The patient has not taken several courses of steroids recently. There is no relationship to food Grandmother has diabetes. Since previous episode, no further symptoms or documentation of hypoglycemia PFSH Surgical History History of circumcision as Family History Mother Hypertension Father No problems noted. Daughter Brain tumor Social History Housing: House Alcohol intake: never Patient Tobacco Use Status: Former Tobacco user Tobacco use type: Cigarette e-Cigarette/Vaping Use: Never Used Second Hand Smoke Exposure: No service: No Current occupational status: unemployed Cognitive needs: No Hearing needs: No Vision needs: Yes Physical Exam Vital Signs: Last Vital Signs Pulse 79 10/20/24 09:59 BP 138/94 H 10/20/24 09:59 Pulse Ox 96 10/20/24 09:59 Oxygen Delivery Method Room Air 10/20/24 09:59 BMI result Body Mass Index 34.5 Assessment & Plan Assessment & Plan (1) Hypoglycemia: Code(s): E16.2 - Hypoglycemia, unspecified Category: Medical Plan: Is a 48-year-old male refer to endocrinology for management of hypoglycemia. Although there was a documented value of low blood sugar, is not clear with the patient's satisfies Whipple's triad that is, symptoms of hypo glycemia correlated with documented hypoglycemia and relief of symptoms of hypoglycemia with correction of the hypoglycemia. Not clear at this point of patient's satisfies Whipple's triad 1. Blood glucose level monitoring: The patient's blood glucose levels appear to be stable with no recent symptoms of hypoglycemia. Lab results showed normal blood sugar levels. The patient is advised to monitor for any new symptoms and seek medical attention if they reoccur. No follow-up visit is needed at this time unless there are changes in the condition. The patient had an opportunity to ask questions regarding treatment plan. The patient expressed understanding and agreement with the above treatment plan. The patient is aware they should contact our office by phone for worsening glucose readings or for any low blood sugars which may warrant a change in diabetes medication. Compliance is encouraged with medications and any followup testing/consults which may have been ordered. Patient was informed and verbally consented to the use of an ambient scribe for clinic note documentation during this visit. During the consultation, I reviewed recent blood sugar levels with the patient, confirming stability and the absence of recent hypoglycemic episodes. I advised that no further testing is required in the absence of symptoms. If symptoms return or persist, then blood tests will be considered again, and further evaluation will be undertaken if necessary. No additional follow-up is required unless the patient experiences any changes in symptoms or health status. Coding Level of Care Code Est Pt Level 3 (42545) Diagnoses Hypoglycemia E16.2
[2024-10-20 09:59] VITALS: BP 138/94; PULSE 79; O2SAT 96; BMI 34.5
== END 2024-10-20 10:45 | disposition home or self-care (01) ==
LOC: HO.ENCR 09:47
PROVIDERS: PCP Internal Medicine; Visit Provider Internal Medicine Endocrinology, Diabetes & Metabolism
DX: E16.2 Hypoglycemia, unspecified (principal)
CPT/HCPCS: 99213

== ENCOUNTER → 2024-10-20 09:46 | Outpatient (BNVA) | payer OTHER, SELFPAY | PROVIDERS: PCP Internal Medicine; Visit Provider Internal Medicine Endocrinology, Diabetes & Metabolism | DX: E16.2 Hypoglycemia, unspecified (principal) | CPT/HCPCS: 99212 ==